=== PATIENT | male | born 1955 | race Caucasian/White ===

== ENCOUNTER 2018-09-19 09:12 | Day surgery (SDC) | payer MEDICARE, OTHER ==
[2018-09-19] MEDS ORDERED: PROPOFOL 40 ML (10:49)
[2018-09-19] MEDS ORDERED: LIDOCAINE 100 MG SYRINGE (10:49)
[2018-09-19] MEDS ORDERED: DEXAMETHASONE 4 MG/ML 1 ML INJ (10:59)
== END 2018-09-19 13:37 | disposition home or self-care (01) ==
LOC: GIL 09:12
DX: K64.8 Other hemorrhoids (principal); K57.30 Diverticulosis of large intestine without perforation or abscess without bleeding; Z86.010 Personal history of colon polyps; I10 Essential (primary) hypertension; E11.9 Type 2 diabetes mellitus without complications; F17.200 Nicotine dependence, unspecified, uncomplicated; Z79.84 Long term (current) use of oral hypoglycemic drugs
CPT/HCPCS: 45378; 82962